=== PATIENT | female | born 1995 | race Caucasian/White ===

== ENCOUNTER 2017-05-08 21:22 | Emergency (ER) | payer OTHER ==
--- NOTE | 2017-05-08 21:30 | ER Report ---
History and Physical Time Seen By MD: 21:29 HPI/ROS CHIEF COMPLAINT: allergic reaction HISTORY OF PRESENT ILLNESS: This is a 21 year old female. She is having some swelling of her lips/mouth. Sudden onset. Uncertain what has caused this. She has some allergies to animals, and to sulfa medication. Never had this happen previously. Has some tightness with breathing and some difficulty swallowing. Some itchiness on neck, but otherwise no itching or rash. No cough or shortness of breath. No abdominal pain. No recent problems with bowel or bladder function. Allergies: Coded Allergies: Sulfa (Sulfonamide Antibiotics) (Verified Allergy, Unknown, 05/08/17) rabbit dander (Verified Allergy, Unknown, 05/08/17) Home Meds Active Scripts Prednisone (PREDNISONE) 20 Mg Tablet, 60 MG PO QDAY, #12 TAB 0 Refills Prov:ALAN NAPOLES MD 05/08/17 Reported Medications [ control] No Conflict Check, 1 TAB PO QDAY 05/08/17 Reviewed Nurses Notes: Yes Constitutional Vital Sign - Last 24 Hours 05/08/17 05/08/17 05/08/17 05/08/17 21:25 21:27 21:40 21:52 Temp 99.2 Pulse 56 57 Resp 21 B/P (MAP) 147/114 (125) 147/114 157/100 (119) Pulse Ox 96 99 O2 Delivery Room Air 05/08/17 05/08/17 05/08/17 05/08/17 22:00 22:22 22:30 22:45 Pulse 56 57 B/P (MAP) 135/102 (113) 151/81 (104) Pulse Ox 98 98 05/08/17 22:48 Pulse 85 Resp 16 B/P (MAP) 148/85 (106) Pulse Ox 95 O2 Delivery Room Air Physical Exam General Appearance: The patient is alert. Eyes: Pupils equal and round no injection. ENT: Swelling of the lower lips. Otherwise normal oral mucosa, tongue and oropharynx. Moist mucous membranes. Tympanic membranes are normal. Neck: Neck is supple and non tender. Respiratory: Chest is non tender, lungs are clear to auscultation. Cardiac: regular rate and rhythm. Gastrointestinal: Abdomen is soft and non tender, no masses, bowel sounds normal. Musculoskeletal: Extremities have full range of motion. Non tender. Skin: No rashes or lesions. DIFFERENTIAL DIAGNOSIS: After history and physical exam differential diagnosis was considered for allergic reaction, unknown cause. Medical Decision Making ED Course/Re-evaluation Clinical Indication for ER IV: Hydration, IV Access ED Course Gave Solu-Medrol 125mg IV, Benadryl 50mg IV and Pepcid 20mg IV along with a liter of normal saline. On re-evaluation, the swelling has diminished significantly in the lower lip, but no completely. She feels that the tightness , shortness of breath and trouble swallowing has resolved completely. Started on oral Prednisone and will continue for the next 4 days. Decision to Disposition Date: May 08, 2017 Decision to Disposition Time: 22:42 Depart Departure Latest Vital Signs Vital Signs Date Time Temp Pulse Resp B/P (MAP) Pulse Ox O2 Delivery O2 Flow Rate FiO2 05/08/17 22:48 85 16 148/85 (106) 95 Room Air 05/08/17 21:27 99.2 Impression: Primary Impression: Allergic reaction Condition: Improved Disposition: HOME OR SELF-CARE New Scripts Prednisone (PREDNISONE) 20 Mg Tablet 60 MG PO QDAY, #12 TAB 0 Refills Prov: ALAN NAPOLES MD 05/08/17 Patient Instructions: General Allergic Reaction (ED) Additional Instructions: You should see improvement continue with the medicines. If you have worsening of breathing, trouble swallowing, worsening rash, or swelling of lips/mouth/tongue, please return for re-evaluation. Take Prednisone 20mg tablets, 3 tablets once a day for 4 more days starting tomorrow morning. You can take over the counter Benadryl (diphenhydramine) 25mg tablets, 1-2 every 6 hours as needed for swelling or itching. Problem Qualifiers Primary Impression: Allergic reaction Encounter type: initial encounter Qualified Codes: T78.40XA - Allergy, unspecified, initial encounter ALAN NAPOLES MD May 08, 2017 21:30
[2017-05-08] MEDS ORDERED: ANAPHYLAXIS KIT 1 EA ONE (21:34)
[2017-05-08] MEDS ORDERED: FAMOTIDINE(*) 20MG/50ML PREMIX 50 ML IVPB ONE (21:35)
[2017-05-08] MEDS ORDERED: methylPREDNIS SUCC 125 MG/2ML IVP ONE (21:35)
[2017-05-08] MEDS ORDERED: diphenhydrAMINE 50 MG/ML VIAL IVP ONE (21:35)
[2017-05-08] MEDS ORDERED: NS(*) 0.9% 1000 ML BAG 1,000 ML IV ONE (21:35)
[2017-05-08] MEDS ORDERED: birth control PO (22:03)
[2017-05-08] MEDS ORDERED: PRED20TA6 PO (22:43)
[2017-05-08] MEDS ORDERED: predniSONE 20 MG TAB PO ONE (22:45)
[2017-05-08 22:48] VITALS: BP 148/85
== END 2017-05-08 22:51 | disposition home or self-care (01) ==
LOC: ER 21:30
DX: T78.40XA Allergy, unspecified, initial encounter (principal)
CPT/HCPCS: 99283; J1200; J2930; J3490; J7030; 96365; 96375